=== PATIENT | male | born 1955 | race Two or more races ===

== ENCOUNTER 2017-08-14 12:10 | Outpatient (CLI) | payer OTHER ==
[2017-08-14 14:04] VITALS: BP 143/78
== END 2017-08-14 23:59 | disposition home or self-care (01) ==
LOC: MSC 12:10
PROVIDERS: ATTEND Internal Medicine
DX: I25.10 Atherosclerotic heart disease of native coronary artery without angina pectoris (principal); I10 Essential (primary) hypertension; E78.5 Hyperlipidemia, unspecified; H40.9 Unspecified glaucoma; Z95.5 Presence of coronary angioplasty implant and graft